=== PATIENT | female | born 1975 | race Caucasian/White ===

== ENCOUNTER 2018-07-14 13:12 | Outpatient (CLI) | payer MEDICARE ==
[2018-07-14 13:41] LABS: Actual Bicarbonate (HCO3a) 19.3 mEq/L (22-28); Analyzer IN Cardio OR; Base Excess (BEa) -3.3 mEq/L (-2.0 to +3.0); CO2 Tension 28.8 mmHg (35.0-45.0); Calcium, Ionized 1.17 mmol/L (1.12-1.30); Carboxyhemoglobin (COHb) 2.8 gm% (0.0-3.0); Hemoglobin (Hb) 14.5 g/dL (12.0-16.0); O2 Tension (PaO2) 101.7 mmHg (80.0-100.0); Potassium - ABG Lab 4.03 mmol/L (3.70-5.30); pH, Arterial 7.45 (7.35-7.45)
[2018-07-14 13:42] LABS: Puncture Site RRA
== END 2018-07-14 13:13 | disposition home or self-care (01) ==
LOC: CP 13:12
PROVIDERS: ATTEND Family Medicine
DX: R09.02 Hypoxemia (principal)
CPT/HCPCS: 82805

== ENCOUNTER 2019-10-18 10:08 | Emergency (ER) | payer MEDICARE ==
--- NOTE | 2019-10-18 11:13 | RAD ---
RADIOGRAPH LUMBAR SPINE 2 VIEWS: DATE: 10/18/2019 HISTORY: 43-year-old female with low back pain FINDINGS: There are 5 lumbar-type vertebrae. Alignment is normal. Vertebral body heights and disc spaces are ma intained. There is no evidence of fracture. Bilateral pedicle screws at L4, L5, and S1 with vertical interlocking rods. Anterior screws entering the disc spaces at L4-5 and L5-S1, with distal t ips embedded in the inferior endplate of L4 and anterior body of S1. Successful ankylosis across the L4-5 and L5-S1 disc spaces. IMPRESSION: 1. Postsurgical changes in the mid and lower lumbar spine. 2. No other significant pathology identified.
--- NOTE | 2019-10-18 11:55 | ULT ---
ULTRASOUND PELVIC ULTRASOUND TRANSVAGINAL DOPPLER DUPLEX: DATE: 10/18/2019 HISTORY: 43-year-old female with pelvic pain TECHNIQUE: Transabdominal transducer and endovaginal transducer used to visualize intrapelvic contents with abel scale, color-flow, and spectral analysis. FINDINGS: Uterus: 9 x 5 x 5.5 cm. Endometrial stripe: 0.6 cm (6 mm) At least 2 uterine fibroids, and possibly several more. Largest is 4 x 3 x 3 cm. There are at least 2 tiny calcifications in the uterus, 0.4 cm and 0.2 cm. Right ovary 2.5 x 1.2 x 2.2 cm with demonstration of blood flow by Doppler. No right ovarian cyst identified. Left ovary not visualized. Tiny amount of free fluid in the cul-de-sac. IMPRESSION: 1. Uterine leiomyomata (fibroids) 2. Left ovary not visualized.
[2019-10-18 12:53] LABS: Pregnancy Test - Urine (BHCG) Negative (Negative); Pregu Control Background? CLEAR/WHITE (CLR/WHITE); Pregu Control Bar Appear? YES (CONTROL BAR); Specific Gravity 1.017 (1.002-1.036)
[2019-10-18] MEDS ORDERED: Lidocaine 5% Patch TD SCH (13:00)
[2019-10-19] MEDS ORDERED: Lidocaine Patch Removal 1 EACH TOP SCH (01:00)
[2019-10-20 20:27] LABS: Chlamydia by PCR Not Detected (NotDetected); GC by PCR Not Detected (NotDetected)
== END 2019-10-18 12:55 | disposition home or self-care (01) ==
LOC: ERS 10:08
DX: D25.9 Leiomyoma of uterus, unspecified (principal); M54.5 Low back pain; G89.29 Other chronic pain; K58.9 Irritable bowel syndrome, unspecified; F17.210 Nicotine dependence, cigarettes, uncomplicated; Z79.899 Other long term (current) drug therapy
CPT/HCPCS: 72100; 76856; 81025; 87480; 87491; 87510; 87591; 87660; 93976

== ENCOUNTER 2020-02-18 07:51 | Outpatient (CLI) | payer MEDICARE, OTHER | END 2020-02-18 07:52 | disposition home or self-care (01) | LOC: LABBT 07:51 | PROVIDERS: ATTEND Obstetrics & Gynecology | DX: Z01.812 Encounter for preprocedural laboratory examination (principal); Z20.828 Contact with and (suspected) exposure to other viral communicable diseases | CPT/HCPCS: 84703; 85025; 86850; 86900; 86901; U0003; 87635 ==

== ENCOUNTER 2020-02-23 05:32 | Day surgery (SDC) | payer MEDICARE, OTHER ==
[2020-02-18 14:40] LABS: #Eosinphils 0.2 thou/uL (0.0-0.7); #Lymphocytes 2.1 thou/uL (1.20-3.40); #Monocytes 0.5 thou/uL (0.11-0.59); #Neutrophils 4.5 thou/uL (1.40-6.50); %Basophils 0.5 % (0.0-1.0); %Eosinophils 2.7 % (0.0-10.0); %Lymphocytes 28.5 % (21.0-51.0); %Monocytes 6.5 % (0.0-10.0); %Neutrophils 61.9 % (42.0-75.0); Hemoglobin 13.5 g/dL (12.0-16.0); Mean Corpuscular HGB CONC 34.1 g/dL (32.0-36.0); Mean Corpuscular Hemoglobin 32.1 pg (27.0-31.0); Mean Corpuscular Volume 94.1 fL (78.0-98.0); Mean Platelet Volume 9.2 fL (7.4-10.4); Platelet Count 195 thou/uL (130-400); RBC Distribution Width 11.1 % (11.5-14.5); Red Blood Cell (RBC) Count 4.19 mill/uL (4.20-5.40); White Blood Cell (WBC) Count 7.3 thou/uL (4.8-10.8)
[2020-02-18 15:04] VITALS: BMI 27.8
[2020-02-18 15:28] LABS: BHCG - Serum Negative (NEGATIVE); Pregs Control Background? CLEAR/WHITE (CLR/WHITE); Pregs Control Bar Appear? YES (CONTROL BAR)
[2020-02-19 13:51] LABS: SARS-CoV-2 MS2 Positive; SARS-CoV-2 N Gene Negative; SARS-CoV-2 S Gene Negative; SARS-CoV-2 by NAA Not Detected (NotDetected); SARS-CoV-2 orf1ab Negative
[2020-02-23] MEDS ORDERED: Gabapentin 300 MG CAP ONE (06:07)
[2020-02-23] MEDS ORDERED: CeleCOXIB 100 MG CAP ONE (06:08)
[2020-02-23] MEDS ORDERED: Famotidine/PF 20 mg/2ml Vial SLOW IVP SCH (06:15)
[2020-02-23] MEDS ORDERED: Lidocaine 4% Topical Sol 50 ML BOT ONE (06:37)
[2020-02-23] MEDS ORDERED: Fentanyl 250 MCG/5 ML VIAL ONE (06:37)
[2020-02-23] MEDS ORDERED: Albuterol Sulfate HFA (OR ONLY) ONE (06:37)
[2020-02-23] MEDS ORDERED: Bupivacaine PF 0.5% 30 ML VIAL ONE (06:42)
[2020-02-23] MEDS ORDERED: Lidocaine 1% w/Epinephrine 1:100K 20 ML VIAL ONE (06:42)
[2020-02-23] MEDS ORDERED: Famotidine/PF 20 mg/2ml Vial ONE (07:07)
[2020-02-23] MEDS ORDERED: Scopolamine 1.5 mg/72 hour Patch ONE (07:12)
[2020-02-23] MEDS ORDERED: Midazolam HCl 2 mg/2 ml Vial ONE (07:12)
[2020-02-23] MEDS ORDERED: Ketamine 50 MG/ML (10ML VIAL) ONE (07:14)
[2020-02-23] MEDS ORDERED: Propofol 1,000 MG/100 ML VIAL IV ONE (07:14)
[2020-02-23] MEDS ORDERED: HYDROmorphone 2 MG/ML VIAL ONE (07:14)
[2020-02-23] MEDS ORDERED: Ropivacaine 0.2% 550 ML 750 ML NERVE BLCK SCH (08:15)
[2020-02-23] MEDS ORDERED: Ropivacaine HCl/PF 750 ML in Premix Bag 1 BAG NERVE BLCK SCH (08:30)
[2020-02-23] MEDS ORDERED: Glycopyrrolate 0.2 MG/ML 5 ML SYRINGE ONE (09:24)
[2020-02-23] MEDS ORDERED: PROPOFOL 200 MG/20 ML VIAL ONE (09:24)
[2020-02-23] MEDS ORDERED: Ondansetron PF 4 MG/2 ML Vial ONE (09:24)
[2020-02-23] MEDS ORDERED: EPHEDRINE 25 MG/5 ML SYRINGE ONE (09:24)
[2020-02-23] MEDS ORDERED: PHENYLEPHRINE-NS 100 MCG/ML 10 ML SYRINGE ONE (09:24)
[2020-02-23] MEDS ORDERED: Dexamethasone 20 MG/5 ML VIAL ONE (09:24)
[2020-02-23] MEDS ORDERED: Ketorolac Tromethamine 30 MG/ML VIAL ONE (09:24)
[2020-02-23] MEDS ORDERED: Rocuronium Bromide 10 MG/ML (10ML VIAL) ONE (09:24)
[2020-02-23] MEDS ORDERED: Lidocaine 1% PF 5 ML VIAL ONE (09:24)
[2020-02-23] MEDS ORDERED: Fentanyl 100 MCG/2 ML VIAL ONE ×3 (09:39→10:32)
--- NOTE | 2020-02-23 10:54 | OP ---
DATE OF PROCEDURE: 02/23/2020 PREOPERATIVE DIAGNOSES: Fibroid uterus, pelvic pain, chronic pain. POSTOPERATIVE DIAGNOSES: Fibroid uterus, pelvic pain, chronic pain. PROCEDURES PERFORMED: Robotic-assisted total laparoscopic hysterectomy with bilateral salpingectomy, ON-Q pump. RACKING TECHNICIAN: Ana Farah MD. COMPLICATIONS: None. ESTIMATED BLOOD LOSS: 50 mL. ANESTHESIA: GETA per Dr. Persaud. OPERATIVE FINDINGS: 1. Enlarged fibroid uterus with fundal posterior and anterior cervical fibroids. 2. Normal-appearing fallopian tube segments. 3. Normal-appearing ovaries. 4. Surgical site hemostatic. PROCEDURE IN DETAIL: The patient was taken back to the OR with IV fluids running. Once she was in the OR, she was placed in dorsal supine position and general anesthesia was obtained. Once the patient was asleep, she was placed in low dorsal lithotomy position with her arms tucked at her side. The abdomen and vagina were prepped and draped in normal fashion for gynecologic laparoscopy. Surgeons were gowned and gloved. A Benson catheter was placed using a sterile technique and attached to a Ana syringe for bladder manipulation during the case. An operative speculum was placed into the vagina and the cervix was grasped at the anterior lip with a tenaculum. A [employer] manipulator was assembled with a 3 cm cup and an 8 cm tip and placed into the uterus and vagina in normal fashion for uterine manipulation. The uterine and vaginal occluder balloons were inflated. The speculum and tenaculum were removed. The surgeon's gloves were changed. Attention was turned to the laparoscopic portion of the case. Beginning above the umbilicus, local anesthesia was placed underneath the skin. A 2 cm skin incision was made with a scalpel. A Veress needle was placed through this incision and the abdomen was insufflated without difficulty. The Veress needle was then removed and a 12 mm optical trocar was placed through this port. The large uterus was noted and concerned for removal from the vagina prompted extension of the supraumbilical port site to the full 2 cm length at the fascia layer and insertion of a GelPOINT retractor and an EndoCatch bag was placed into the abdomen if needed for removal of the uterus later during the case. At the end of the case, the bag was retrieved through the vagina as it was not needed for specimen retrieval. With the bag in place and the abdomen insufflated, the 3 additional ports were placed, one right and left lower quadrant 8 mm port and one right upper quadrant 11 mm port all under direct visualization without difficulty. With all ports placed, the robot was docked to the patient's bedside and the instruments were entered through the right and left lower quadrant ports under direct visualization. Beginning on the patient's left side, the left fallopian tube segment was grasped, transected and removed from the operative field. The utero-ovarian ligament on the patient's left side was cauterized and transected allowing the left artery to fall away to the pelvic sidewall. The left round ligament was cauterized, transected, and divided into anterior and posterior leaves down towards the level of the uterine artery. The bladder flap was created by dissecting the vesicouterine fascia just below the cervical fibroid. The uterine artery on the patient's left side was cauterized and transected with hemostasis noted. Attention was then turned to the contralateral side, where the right fallopian tube segment was cauterized and transected. It was removed from the operative field and sent for pathologic review. The utero- ovarian ligament on the patient's right side was cauterized and transected allowing the ovary to fall away to the pelvic sidewall. The round ligament on the patient's right side was cauterized, transected, and divided into anterior and posterior leaves down to the level of the uterine artery. After the uterine artery was skeletonized, the bladder flap was completed on the patient's right side and the bladder was dissected away from the planned colpotomy site. The bladder was backfilled and noted to be well away from the planned colpotomy site. After the uterine artery was cauterized and transected, the colpotomy began anteriorly and was completed circumferentially using monopolar scissors. The uterine specimen was then retracted through the colpotomy into the vagina. The specimen bag followed as it was not needed for specimen retrieval. With pneumoperitoneum restored, the vaginal cuff was copiously irrigated and dried as well as the surgical pedicles. Only small areas of bleeding were noted at the vaginal cuff which was controlled with Bovie cauterization. The vaginal cuff was reapproximated in a running fashion with Stratafix suture and closed in 2 layers. After the vaginal cuff was closed, it was copiously irrigated and dry. No areas of bleeding were noted. The intraabdominal pressure was dropped to 4 mmHg and no areas of bleeding were noted. An ON-Q catheter tip was placed through the anterior abdominal wall under direct visualization and the catheter was pulled down into the pelvis and primed. The catheter was fixed to the abdominal skin with a sterile dressing. The gas was released from the abdomen. All the instruments were removed and the counts were correct. The supraumbilical fascia was closed with Vicryl suture in a running fashion. All 4 skin incisions were closed with Monocryl suture and dressed with Dermabond dressing. The vagina was inspected at the end of the case with a dry sponge and no bleeding was noted. The patient tolerated the procedure well. Job ID: [id number] [facility]
[2020-02-23] MEDS ORDERED: Morphine 4 MG/ML VIAL SLOW IVP PRN (11:26)
[2020-02-23] MEDS ORDERED: Ondansetron PF 4 MG/2 ML Vial IVP PRN (11:26)
[2020-02-23] MEDS ORDERED: Simethicone Chewable 80 MG TAB PO PRN (11:26)
[2020-02-23] MEDS ORDERED: Sodium Chloride 0.9% 1,000 ML IV SCH (11:26)
[2020-02-23] MEDS ORDERED: diphenhydrAMINE 25 MG CAP PO PRN (11:26)
[2020-02-23] MEDS ORDERED: HYDROcodone/Acetaminophen 5/325 mg Tablet PO PRN ×2 (11:26)
[2020-02-23] MEDS ORDERED: Zolpidem Tartrate 5 MG TAB PO PRN (11:26)
[2020-02-23] MEDS ORDERED: Bisacodyl 10 MG SUPP PR PRN (11:26)
[2020-02-23] MEDS ORDERED: Promethazine HCl 25 MG/ML VIAL IM PRN (11:26)
[2020-02-23] MEDS ORDERED: Ketorolac Tromethamine 30 MG/ML VIAL IVP SCH (12:00)
[2020-02-23 20:13] VITALS: BP 108/59; TEMP 98
[2020-02-28] MEDS ORDERED: Ibuprofen 800 MG TAB PO SCH (14:00)
== END 2020-02-23 15:10 | disposition home or self-care (01) ==
LOC: SDC 05:32 → 3SW 11:11 → SDC 15:10
PROVIDERS: ATTEND Obstetrics & Gynecology
PROC: 0UT94ZZ Resection of Uterus, Percutaneous Endoscopic Approach (ICD-10-PCS; principal; 2020-02-23)
DX: D25.2 Subserosal leiomyoma of uterus (principal); N72 Inflammatory disease of cervix uteri; F32.9 Major depressive disorder, single episode, unspecified; F90.0 Attention-deficit hyperactivity disorder, predominantly inattentive type; F17.210 Nicotine dependence, cigarettes, uncomplicated; K58.9 Irritable bowel syndrome, unspecified; G89.29 Other chronic pain; M54.2 Cervicalgia; M54.5 Low back pain; Z79.899 Other long term (current) drug therapy
CPT/HCPCS: 58571; 84703; 85025; 86850; 86900; 86901; 88307; U0003; 36415; 87635; J0690; J1100; J1170; J1885; J2250; J2405; J2704; J2795; J3010; S0020; S0028

== ENCOUNTER 2020-12-08 14:49 | Emergency (ER) | payer MEDICARE ==
[2020-12-08 15:40] LABS: #Eosinphils 0.2 thou/uL (0.0-0.7); #Lymphocytes 2.3 thou/uL (1.20-3.40); #Monocytes 0.9 thou/uL (0.11-0.59); #Neutrophils 9.4 thou/uL (1.40-6.50); %Basophils 0.3 % (0.0-1.0); %Eosinophils 1.3 % (0.0-10.0); %Monocytes 7.1 % (0.0-10.0); %Neutrophils 73.3 % (42.0-75.0); Hemoglobin 14.4 g/dL (12.0-16.0); Mean Corpuscular HGB CONC 35.4 g/dL (32.0-36.0); Mean Corpuscular Hemoglobin 33.9 pg (27.0-31.0); Mean Corpuscular Volume 95.8 fL (78.0-98.0); Mean Platelet Volume 8.4 fL (7.4-10.4); Platelet Count 202 thou/uL (130-400); RBC Distribution Width 11.3 % (11.5-14.5); Red Blood Cell (RBC) Count 4.25 mill/uL (4.20-5.40); White Blood Cell (WBC) Count 12.8 thou/uL (4.8-10.8)
[2020-12-08 15:45] LABS: Bilirubin Negative (Negative); Blood, Urine 2+ (Negative); Clarity Turbid (Clear); Glucose, Urine (Dipstick) Normal (Negative); Ketone, Urine Negative (Negative); Leukocyte 500 Leu/uL (Negative); Nitrite 1+ (Negative); Protein, Urine (Dipstick) 30 mg/dL (Neg-Trace); Specific Gravity, Urine 1.028 (1.002-1.036); Squamous Epithelial 0-3 HPF (0-3); Urobilinogen Normal mg/dL (Less than 2); WBC/HPF Greater than 50 HPF (0-3)
[2020-12-08 15:47] LABS: Bacteria/HPF 3+ HPF (None Seen)
[2020-12-08 16:03] LABS: ALT (SGPT) 10 U/L (8-55); AST (SGOT) 17 U/L (5-34); Albumin 4.1 g/dL (3.5-5.0); Alkaline Phosphatase 64 U/L (40-110); Anion Gap 15 mmol/L (10-20); BUN (Urea Nitrogen) 11 mg/dL (7.0-18.7); Bilirubin, Total 0.2 mg/dL (0.2-1.2); Calc. Creatinine Clearance 0 mL/min (70-130); Calcium 8.9 mg/dL (7.8-10.44); Carbon Dioxide 23 mmol/L (22-29); Chloride 104 mmol/L (98-107); Globulin 2.9 g/dL (2.4-3.5); Glucose 106 mg/dL (70-105); Potassium 3.8 mmol/L (3.5-5.1); Sodium 138 mmol/L (136-145)
[2020-12-08] MEDS ORDERED: Morphine 4 MG/ML VIAL ONE (16:20)
[2020-12-08] MEDS ORDERED: Ondansetron PF 4 MG/2 ML Vial ONE (16:20)
[2020-12-08] MEDS ORDERED: Ketorolac Tromethamine 30 MG/ML VIAL ONE (17:02)
[2020-12-08] MEDS ORDERED: cefTRIAXone\\ROCEPHIN 2 GM VIAL ONE (17:15)
[2020-12-08] MEDS ORDERED: Fentanyl 100 MCG/2 ML VIAL ONE (17:22)
== END 2020-12-08 17:48 | disposition home or self-care (01) ==
LOC: ERS 14:49
DX: N30.01 Acute cystitis with hematuria (principal); F17.210 Nicotine dependence, cigarettes, uncomplicated
CPT/HCPCS: 36415; 74177; 80053; 81003; 81015; 85025; 87040; 94760; 96374; 96375; J0696; J1885; J2270; J2405; J3010

== ENCOUNTER 2021-11-20 13:42 | Emergency (ER) | payer MEDICARE ==
[2021-11-20 14:21] LABS: Bilirubin Negative (Negative); Blood, Urine Trace (Negative); Clarity Clear (Clear); Glucose, Urine (Dipstick) Normal (Negative); Ketone, Urine Negative (Negative); Leukocyte 500 Leu/uL (Negative); Nitrite Negative (Negative); Protein, Urine (Dipstick) Negative (Neg-Trace); Specific Gravity, Urine 1.026 (1.002-1.036); Urobilinogen Normal mg/dL (Less than 2); WBC/HPF Greater than 50 HPF (0-3)
[2021-11-20 14:22] LABS: Bacteria/HPF 1+ HPF (None Seen)
[2021-11-20 14:28] LABS: #Eosinphils 0.1 thou/uL (0.0-0.7); #Lymphocytes 2.2 thou/uL (1.20-3.40); #Monocytes 0.8 thou/uL (0.11-0.59); #Neutrophils 6.1 thou/uL (1.40-6.50); %Basophils 0.3 % (0.0-1.0); %Lymphocytes 23.9 % (21.0-51.0); %Monocytes 8.2 % (0.0-10.0); %Neutrophils 66.5 % (42.0-75.0); Mean Corpuscular Hemoglobin 32.4 pg (27.0-31.0); Mean Corpuscular Volume 95.4 fL (78.0-98.0); Mean Platelet Volume 7.6 fL (7.4-10.4); Platelet Count 265 thou/uL (130-400); RBC Distribution Width 10.7 % (11.5-14.5); Red Blood Cell (RBC) Count 4.64 mill/uL (4.20-5.40); White Blood Cell (WBC) Count 9.2 thou/uL (4.8-10.8)
[2021-11-20 14:48] LABS: ALT (SGPT) 13 U/L (8-55); AST (SGOT) 10 U/L (5-34); Albumin 4.2 g/dL (3.5-5.0); Alkaline Phosphatase 58 U/L (40-110); Anion Gap 13 mmol/L (10-20); BUN (Urea Nitrogen) 11 mg/dL (7.0-18.7); Bilirubin, Total 0.4 mg/dL (0.2-1.2); Calc. Creatinine Clearance 0 mL/min (70-130); Calcium 9.1 mg/dL (7.8-10.44); Carbon Dioxide 23 mmol/L (22-29); Chloride 105 mmol/L (98-107); Globulin 3.2 g/dL (2.4-3.5); Glucose 96 mg/dL (70-105); Potassium 4.1 mmol/L (3.5-5.1); Protein, Total 7.4 g/dL (6.0-8.3); Sodium 137 mmol/L (136-145)
[2021-11-20] MEDS ORDERED: Ondansetron PF 4 MG/2 ML Vial ONE (14:49)
[2021-11-20] MEDS ORDERED: cefTRIAXone\\ROCEPHIN 2 GM VIAL ONE (14:49)
[2021-11-20] MEDS ORDERED: Morphine 4 MG/ML VIAL ONE (14:49)
== END 2021-11-20 16:30 | disposition home or self-care (01) ==
LOC: ERS 13:42
DX: N30.01 Acute cystitis with hematuria (principal); Z87.891 Personal history of nicotine dependence; Z79.899 Other long term (current) drug therapy
CPT/HCPCS: 74177; 80053; 81003; 81015; 85025; 86850; 86900; 86901; 94760; 96365; 96375; J0696; J2270; J2405

== ENCOUNTER 2022-09-29 08:32 | Emergency (ER) | payer MEDICARE ==
[2022-09-29] MEDS ORDERED: Morphine 4 MG/ML VIAL ONE ×2 (09:10→11:01)
[2022-09-29] MEDS ORDERED: Ondansetron PF 4 MG/2 ML Vial ONE (09:10)
[2022-09-29 09:36] LABS: #Lymphocytes 1.2 thou/uL (1.20-3.40); #Monocytes 1.1 thou/uL (0.11-0.59); #Neutrophils 17.4 thou/uL (1.40-6.50); %Eosinophils 0.2 % (0.0-10.0); %Monocytes 5.7 % (0.0-10.0); %Neutrophils 88.1 % (42.0-75.0); Hemoglobin 14.4 g/dL (12.0-16.0); Mean Corpuscular Hemoglobin 32.3 pg (27.0-31.0); Mean Corpuscular Volume 94.8 fl (78.0-98.0); Mean Platelet Volume 7.8 fL (7.4-10.4); Platelet Count 235 10x3/uL (130-400); Red Blood Cell (RBC) Count 4.45 mill/uL (4.20-5.40); White Blood Cell (WBC) Count 19.8 10x3/uL (4.8-10.8)
[2022-09-29 09:51] LABS: Prothrombin Time 105.1 sec (12.0-14.7)
[2022-09-29 09:57] LABS: ALT (SGPT) 33 U/L (8-55); AST (SGOT) 22 U/L (5-34); Albumin 4.5 g/dL (3.5-5.0); Alkaline Phosphatase 64 U/L (40-110); Anion Gap 15 mmol/L (10-20); BUN (Urea Nitrogen) 11 mg/dL (7.0-18.7); Bilirubin, Total 0.7 mg/dL (0.2-1.2); Calc. Creatinine Clearance 0 mL/min (70-130); Calcium 9.3 mg/dL (7.8-10.44); Carbon Dioxide 21 mmol/L (22-29); Chloride 105 mmol/L (98-107); Estimated GFR 90; Globulin 2.8 g/dL (2.4-3.5); Glucose 110 mg/dL (70-105); Lipase 7 U/L (8-78); Protein, Total 7.3 g/dL (6.0-8.3); Sodium 137 mmol/L (136-145)
[2022-09-29 10:08] LABS: INR-International Normal Ratio 13.2
[2022-09-29 10:09] LABS: PTT Greater than 250.0 sec (22.9-36.1)
[2022-09-29] MEDS ORDERED: cefTRIAXone (ROCEPHIN) 2 GM VIAL ONE (11:01)
[2022-09-29 11:14] LABS: Bacteria/HPF 2+ HPF (None Seen); Bilirubin Negative (Negative); Blood, Urine Negative (Negative); Clarity Turbid (Clear); Glucose, Urine (Dipstick) Normal (Negative); Ketone, Urine Negative (Negative); Leukocyte 500 Leu/uL (Negative); Nitrite 2+ (Negative); Protein, Urine (Dipstick) Negative (Neg-Trace); RBC/HPF 0-3 HPF (0-3); Specific Gravity, Urine 1.014 (1.002-1.036); Squamous Epithelial 0-3 HPF (0-3); Urobilinogen Normal mg/dL (Less than 2); WBC/HPF Greater than 50 HPF (0-3); pH, Urine 5.5 (5.0-9.0)
[2022-09-29 12:13] LABS: PTT 25.3 sec (22.9-36.1); Prothrombin Time 13.8 sec (12.0-14.7)
[2022-09-29] MEDS ORDERED: Iopamidol-370 76% 500 ML MDV (1 ML CHARGE) ONE (12:30)
== END 2022-09-29 12:46 | disposition home or self-care (01) ==
LOC: ERS 08:32
DX: N39.0 Urinary tract infection, site not specified (principal); D72.829 Elevated white blood cell count, unspecified; I10 Essential (primary) hypertension
CPT/HCPCS: 74177; 80053; 81003; 81015; 83690; 85025; 85610; 85730; 94760; 96374; 96375; 96376; J0696; J2270; J2405; Q9967

== ENCOUNTER 2023-07-21 10:35 | Inpatient (IN) | payer MEDICARE ==
[2023-07-21] MEDS ORDERED: Ondansetron ODT 4 MG TAB ONE (11:37)
[2023-07-21] MEDS ORDERED: Acetaminophen 500 MG TAB ONE (11:37)
[2023-07-21 11:52] LABS: Hematocrit 36.3 % (36.0-47.0); Hemoglobin 12.4 g/dL (12.0-16.0); Manual Diff?? YES; Mean Corpuscular HGB CONC 34.2 g/dL (32.0-36.0); Mean Corpuscular Hemoglobin 31.7 pg (27.0-31.0); Mean Corpuscular Volume 92.8 fl (78.0-98.0); Mean Platelet Volume 9.9 fL (7.4-10.4); Platelet Count 179 10x3/uL (130-400); RBC Distribution Width 12.5 % (11.5-14.5); Red Blood Cell (RBC) Count 3.91 mill/uL (4.20-5.40); White Blood Cell (WBC) Count 26.2 10x3/uL (4.8-10.8)
[2023-07-21 12:02] LABS: Delete Auto Diff?? YES
[2023-07-21 12:10] LABS: ALT (SGPT) 61 U/L (8-55); AST (SGOT) 46 U/L (5-34); Albumin 3.7 g/dL (3.5-5.0); Alkaline Phosphatase 86 U/L (40-110); Anion Gap 14 mmol/L (10-20); BUN (Urea Nitrogen) 12 mg/dL (7.0-18.7); Bilirubin, Total 1.3 mg/dL (0.2-1.2); Calc. Creatinine Clearance 0 mL/min (70-130); Calcium 9.3 mg/dL (7.8-10.44); Carbon Dioxide 19 mmol/L (22-29); Chloride 105 mmol/L (98-107); Estimated GFR 60; Glucose 129 mg/dL (70-105); Lipase 4 U/L (8-78); Potassium 3.5 mmol/L (3.5-5.1); Protein, Total 6.7 g/dL (6.0-8.3); Sodium 134 mmol/L (136-145)
[2023-07-21 12:28] LABS: Band 7 % (5-11); Burr Cells SLIGHT = 2-5 cells HPF (0-1); CellaVision Operator ID LAB.NR; Lymphocytes 1 % (21-51); Monocytes 8 % (0-10); Neutrophil 84 % (42-75); Platelet Adequacy Comment Platelets Normal; Polychromasia SLIGHT = 2-3 cells HPF (0-2); Smudge Cells 6.1 %; Total Cell Count 99; Vacuoles SLIGHT
[2023-07-21] MEDS ORDERED: Morphine 4 MG/ML VIAL ONE ×2 (12:32→14:27)
[2023-07-21 12:59] LABS: Bacteria/HPF 4+ HPF (None Seen); Bilirubin Negative (Negative); Blood, Urine Trace (Negative); CAUTI Indications for Culture Alt mental st,lethar; Clarity Turbid (Clear); Glucose, Urine (Dipstick) Normal (Negative); Ketone, Urine Negative (Negative); Leukocyte 500 Leu/uL (Negative); Nitrite 2+ (Negative); Protein, Urine (Dipstick) 50 mg/dL (Neg-Trace); Specific Gravity, Urine 1.012 (1.002-1.036); WBC/HPF Greater than 50 HPF (0-3); pH, Urine 5.5 (5.0-9.0)
[2023-07-21 13:00] LABS: Urine Culture Reflex Yes Yes
[2023-07-21] MEDS ORDERED: Cefepime 2 GM VIAL ONE (13:20)
[2023-07-21] MEDS ORDERED: Sodium Chloride 0.9% 100 ML ONE (13:20)
[2023-07-21 13:27] LABS: SARS-CoV-2 NAA Rapid Test Not Detected (NotDetected)
[2023-07-21] MEDS ORDERED: Non-Formulary Item 1 EACH (Albuterol Sulfate [Proair Digihaler] 90 MCG Aer.Pw.Bas) IH PRN (15:47)
[2023-07-21] MEDS ORDERED: Iopamidol-370 76% 500 ML MDV (1 ML CHARGE) ONE (15:59)
[2023-07-21] MEDS: oxyCODONE 5 MG TAB PO PRN (16:44)
[2023-07-21] MEDS: Enoxaparin 40 MG (0.4 mL) SYRINGE SC SCH (16:48)
[2023-07-21] MEDS: Sodium Chloride 0.9% 1,000 ML IV SCH ×2 (16:52→23:35)
[2023-07-21 17:00] VITALS: BMI 27.9
[2023-07-21] MEDS ORDERED: Ketorolac Tromethamine 30 MG (1 mL) VIAL IVP PRN (19:48)
[2023-07-21] MEDS: Ketorolac Tromethamine 30 MG (1 mL) VIAL IVP SCH (20:02)
[2023-07-21] MEDS: HYDROcodone/Acetaminophen 10/325 mg Tablet PO PRN (20:03)
[2023-07-21] MEDS: Zolpidem Tartrate 5 MG TAB PO SCH (21:17)
[2023-07-21] MEDS: Sodium Chloride 0.9% 500 ML IV SCH (21:28)
[2023-07-21] MEDS: Naloxone HCl 0.4 mg/ml Vial IV PRN (22:23)
[2023-07-21] MEDS ORDERED: HYDROcodone/Acetaminophen 5/325 mg Tablet PO PRN (22:38)
[2023-07-21] MEDS: Acetaminophen 500 MG TAB PO SCH (22:48)
[2023-07-21] MEDS: Lidocaine 4% Patch TD SCH (22:49)
[2023-07-22] MEDS: Naloxone HCl 0.4 mg/ml Vial IV SCH (00:10)
[2023-07-22] MEDS: Sodium Chloride 0.9% 1,000 ML IV SCH (00:10)
[2023-07-22 00:42] LABS: Amphetamine Detected (NotDetected); Barbiturates Screen Not Detected (NotDetected); Benzodiazepine Screen Not Detected (NotDetected); Cocaine Metabolite Screen Not Detected (NotDetected); Methadone Not Detected (NotDetected); Methamphetamine Not Detected (NotDetected); Opiate Screen Detected (NotDetected); Oxycodone Screen Detected (NotDetected); Phencyclidine (PCP) Not Detected (NotDetected); THC/Cannabinoid Screen Detected (NotDetected); Tricyclic Screen Not Detected (NotDetected)
[2023-07-22 00:52] LABS: Actual Bicarbonate (HCO3v) 18.3 mEq/L (22-28); Base Excess -6.9 mEq/L (-2.0 to +3.0); Calcium, Ionized (venous) 1.09 mmol/L (1.16-1.32); Chloride (VBG) 107 mmol/L (98-106); Hematocrit-VBG 31 % (36.0-47.0); Hemoglobin (Hb) 10.6 g/dL (11.7-16.0); Potassium (VBG) 3.66 mmol/L (3.70-5.30); Sodium 133 mmol/L (133-146); pH (venous) 7.331 (7.32-7.43)
[2023-07-22 00:55] LABS: #Monocytes 1.8 thou/uL (0.11-0.59); #Neutrophils 15.6 thou/uL (1.40-6.50); %Basophils 0.1 % (0.0-1.0); %Eosinophils 0.1 % (0.0-10.0); %Lymphocytes 2.2 % (21.0-51.0); %Monocytes 9.8 % (0.0-10.0); %Neutrophils 86.4 % (42.0-75.0); Hematocrit 29.1 % (36.0-47.0); Mean Corpuscular HGB CONC 34.4 g/dL (32.0-36.0); Mean Corpuscular Hemoglobin 31.4 pg (27.0-31.0); Mean Corpuscular Volume 91.5 fl (78.0-98.0); Mean Platelet Volume 10.4 fL (7.4-10.4); Platelet Count 132 10x3/uL (130-400); RBC Distribution Width 12.7 % (11.5-14.5); Red Blood Cell (RBC) Count 3.18 mill/uL (4.20-5.40); White Blood Cell (WBC) Count 18.1 10x3/uL (4.8-10.8)
[2023-07-22 01:18] LABS: ALT (SGPT) 114 U/L (8-55); AST (SGOT) 108 U/L (5-34); Albumin 2.9 g/dL (3.5-5.0); Alkaline Phosphatase 101 U/L (40-110); Anion Gap 10 mmol/L (10-20); BUN (Urea Nitrogen) 13 mg/dL (7.0-18.7); Bilirubin, Total 1.7 mg/dL (0.2-1.2); Calc. Creatinine Clearance 75 mL/min (70-130); Calcium 7.8 mg/dL (7.8-10.44); Carbon Dioxide 20 mmol/L (22-29); Chloride 109 mmol/L (98-107); Estimated GFR 63; Globulin 2.4 g/dL (2.4-3.5); Glucose 140 mg/dL (70-105); Magnesium 1.5 mg/dL (1.6-2.6); Potassium 3.8 mmol/L (3.5-5.1); Protein, Total 5.3 g/dL (6.0-8.3); Sodium 135 mmol/L (136-145)
[2023-07-22] MEDS ORDERED: NOREPINEPHRINE 8 MG/250 ML-D5W 250 ML IVPB SCH (01:45)
[2023-07-22] MEDS: Ketorolac Tromethamine 30 MG (1 mL) VIAL IVP PRN (02:00)
[2023-07-22] MEDS: Albumin 25% 25 GM (100 mL) BOT IVPB SCH (02:05)
[2023-07-22] MEDS: Cefepime 2 GM in Sodium Chloride 0.9% 100 ML IVPB SCH (03:01)
[2023-07-22] MEDS: Magnesium Sulfate In Water 4 GM in Premix 1 BAG IVPB SCH (03:01)
[2023-07-22] MEDS: NOREPINEPHRINE 8 MG/250 ML-D5W 0 ML ONE (04:19)
[2023-07-22] MEDS ORDERED: fentaNYL 50 mcg/mL 1 mL Vial SLOW IVP SCH (05:30)
[2023-07-22] MEDS: Morphine 2 MG/ML VIAL SLOW IVP SCH (06:15)
[2023-07-22 06:21] LABS: Hematocrit 35.4 % (36.0-47.0); Hemoglobin 11.4 g/dL (12.0-16.0); Mean Corpuscular HGB CONC 32.2 g/dL (32.0-36.0); Mean Corpuscular Hemoglobin 31.2 pg (27.0-31.0); Mean Platelet Volume 10.9 fL (7.4-10.4); Platelet Count 142 10x3/uL (130-400); RBC Distribution Width 12.9 % (11.5-14.5); Red Blood Cell (RBC) Count 3.65 mill/uL (4.20-5.40); White Blood Cell (WBC) Count 12.7 10x3/uL (4.8-10.8)
[2023-07-22 06:22] LABS: Delete Auto Diff?? YES
[2023-07-22 06:23] LABS: Manual Diff?? YES
[2023-07-22 06:41] LABS: Anion Gap 14 mmol/L (10-20); BUN (Urea Nitrogen) 12 mg/dL (7.0-18.7); Calc. Creatinine Clearance 77 mL/min (70-130); Calcium 8.2 mg/dL (7.8-10.44); Carbon Dioxide 15 mmol/L (22-29); Chloride 109 mmol/L (98-107); Estimated GFR 65; Glucose 99 mg/dL (70-105); Potassium 3.8 mmol/L (3.5-5.1); Sodium 134 mmol/L (136-145)
[2023-07-22 06:47] LABS: Band 15 % (5-11); CellaVision Operator ID LAB.CLH1; Hypochromia SLIGHT = 6-15 cells HPF (0-5); Lymphocytes 3 % (21-51); Monocytes 3 % (0-10); Neutrophil 79 % (42-75); Platelet Adequacy Comment Platelets Normal; Polychromasia SLIGHT = 2-3 cells HPF (0-2); Total Cell Count 100
[2023-07-22] MEDS: Acetaminophen 325 MG TAB PO PRN (08:16)
[2023-07-22] MEDS: Transdermal Patch Removal TOP SCH (08:24)
[2023-07-22] MEDS ORDERED: Acetaminophen 500 MG TAB PO PRN (08:39)
[2023-07-22] MEDS ORDERED: Transdermal Patch Removal TOP SCH (10:45)
[2023-07-22] MEDS: Meropenem 1 GM in Sodium Chloride 0.9% 100 ML IVPB SCH ×2 (12:45→18:04)
[2023-07-22] MEDS: oxyCODONE 5 MG TAB PO PRN (12:56)
[2023-07-22] MEDS: Acetaminophen 500 MG TAB PO SCH (14:43)
[2023-07-22] MEDS ORDERED: Ondansetron ODT 4 MG TAB PO PRN (19:20)
[2023-07-22 19:50] LABS: HBCM Index 0.06 S/CO (0-0.79); HBSAg Index 0.23 S/CO (0-0.99); Hep A IgM AB Non-Reactive S/CO (NonReactive); Hep A IgM S/CO 0.09 S/CO (0-0.79); Hep B Surf Ag Non-Reactive S/CO (NonReactive); Hep C IgG Ab Non-Reactive S/CO (NonReactive); Hep C Index 0.06 S/CO (0-0.79); Hepatitis B Core IgM Abs Non-Reactive S/CO (NonReactive)
[2023-07-22] MEDS: Lidocaine 4% Patch TD SCH (20:23)
[2023-07-22] MEDS: Enoxaparin 40 MG (0.4 mL) SYRINGE SC SCH (20:23)
[2023-07-22] MEDS: hydrALAZINE 25 MG TAB PO SCH (21:29)
[2023-07-22] MEDS: Ipratropium/Albuterol 3 ML NEB NEB PRN (21:50)
[2023-07-22] MEDS: hydrALAZINE 20 MG/ML VIAL SLOW IVP SCH ×2 (21:54→23:08)
[2023-07-22] MEDS: Furosemide 40 MG (4 mL) VIAL SLOW IVP SCH (21:55)
[2023-07-22 22:03] LABS: Actual Bicarbonate (HCO3v) 16.6 mEq/L (22-28); Calcium, Ionized (venous) 1.12 mmol/L (1.16-1.32); Chloride (VBG) 106 mmol/L (98-106); Hematocrit 34.7 % (36.0-47.0); Hematocrit-VBG 38 % (36.0-47.0); Hemoglobin 11.8 g/dL (12.0-16.0); Hemoglobin (Hb) 12.9 g/dL (11.7-16.0); Manual Diff?? YES; Mean Corpuscular Hemoglobin 31.8 pg (27.0-31.0); Mean Platelet Volume 11.1 fL (7.4-10.4); Platelet Count 148 10x3/uL (130-400); Potassium (VBG) 3.69 mmol/L (3.70-5.30); RBC Distribution Width 12.9 % (11.5-14.5); Red Blood Cell (RBC) Count 3.71 mill/uL (4.20-5.40); Sodium 135 mmol/L (133-146); White Blood Cell (WBC) Count 30.1 10x3/uL (4.8-10.8)
[2023-07-22 22:05] LABS: Delete Auto Diff?? YES; Mean Corpuscular Volume 93.5 fl (78.0-98.0)
[2023-07-22 22:23] LABS: Anion Gap 15 mmol/L (10-20); BUN (Urea Nitrogen) 11 mg/dL (7.0-18.7); Calc. Creatinine Clearance 96 mL/min (70-130); Calcium 8.5 mg/dL (7.8-10.44); Carbon Dioxide 13 mmol/L (22-29); Chloride 109 mmol/L (98-107); Estimated GFR 85; Glucose 126 mg/dL (70-105); Magnesium 2.4 mg/dL (1.6-2.6); Potassium 3.8 mmol/L (3.5-5.1); Sodium 133 mmol/L (136-145)
[2023-07-22 22:26] LABS: Band 5 % (5-11); CellaVision Operator ID lab.sh2; Lymphocytes 1 % (21-51); Macrocytosis SLIGHT = 6-15 cells HPF (0-5); Monocytes 1 % (0-10); Neutrophil 93 % (42-75); Ovalocytes SLIGHT = 2-5 cells HPF (0-1); Platelet Adequacy Comment Platelets Normal; Polychromasia SLIGHT = 2-3 cells HPF (0-2); Smudge Cells 18.2 %; Total Cell Count 99
[2023-07-22] MEDS ORDERED: hydrALAZINE 20 MG/ML VIAL SLOW IVP SCH (23:00)
[2023-07-22] MEDS: Sodium Bicarb 50 mEq/50 ML VIAL IVP SCH (23:11)
[2023-07-22] MEDS: Labetalol HCl 100 MG/20 ML VIAL SLOW IVP SCH (23:53)
[2023-07-23] MEDS: cloNIDine 0.1 MG TAB PO SCH (01:37)
[2023-07-23] MEDS: hydrALAZINE 20 MG/ML VIAL SLOW IVP PRN (03:12)
[2023-07-23 04:22] LABS: Hematocrit 35.3 % (36.0-47.0); Hemoglobin 12.3 g/dL (12.0-16.0); Manual Diff?? YES; Mean Corpuscular HGB CONC 34.8 g/dL (32.0-36.0); Mean Corpuscular Hemoglobin 31.5 pg (27.0-31.0); Mean Platelet Volume 10.9 fL (7.4-10.4); Platelet Count 198 10x3/uL (130-400); RBC Distribution Width 12.9 % (11.5-14.5); Red Blood Cell (RBC) Count 3.91 mill/uL (4.20-5.40); White Blood Cell (WBC) Count 31.8 10x3/uL (4.8-10.8)
[2023-07-23 04:25] LABS: Delete Auto Diff?? YES; Mean Corpuscular Volume 90.3 fl (78.0-98.0)
[2023-07-23 04:54] LABS: ALT (SGPT) 78 U/L (8-55); AST (SGOT) 37 U/L (5-34); Albumin 3.8 g/dL (3.5-5.0); Alkaline Phosphatase 164 U/L (40-110); Anion Gap 16 mmol/L (10-20); BUN (Urea Nitrogen) 11 mg/dL (7.0-18.7); Bilirubin, Total 3.3 mg/dL (0.2-1.2); Calc. Creatinine Clearance 85 mL/min (70-130); Calcium 8.9 mg/dL (7.8-10.44); Carbon Dioxide 18 mmol/L (22-29); Chloride 104 mmol/L (98-107); Estimated GFR 73; Glucose 122 mg/dL (70-105); Potassium 2.9 mmol/L (3.5-5.1); Sodium 135 mmol/L (136-145)
[2023-07-23 05:33] LABS: Band 8 % (5-11); CellaVision Operator ID lab.sh2; Monocytes 5 % (0-10); Neutrophil 87 % (42-75); Platelet Adequacy Comment Platelets Normal; RBC Morphology Within Normal Limits; Total Cell Count 101
[2023-07-23 05:53] LABS: Globulin 3.4 g/dL (2.4-3.5)
[2023-07-23 05:56] LABS: Protein, Total 7.2 g/dL (6.0-8.3)
[2023-07-23] MEDS: Furosemide 40 MG (4 mL) VIAL SLOW IVP SCH (06:01)
[2023-07-23] MEDS ORDERED: oxyCODONE 5 MG TAB PO PRN ×2 (09:04→16:08)
[2023-07-23] MEDS: Potassium Chloride 20 MEQ in Premix 1 BAG IVPB SCH (17:02)
[2023-07-24] MEDS ORDERED: Electrolyte Replacement Protocol 1 EACH FS SCH (04:30)
[2023-07-24 06:22] LABS: #Monocytes 1.8 thou/uL (0.11-0.59); #Neutrophils 19.6 thou/uL (1.40-6.50); %Basophils 0.1 % (0.0-1.0); %Lymphocytes 5.1 % (21.0-51.0); %Neutrophils 85.8 % (42.0-75.0); Hemoglobin 12.7 g/dL (12.0-16.0); Mean Corpuscular HGB CONC 35.3 g/dL (32.0-36.0); Mean Corpuscular Hemoglobin 31.4 pg (27.0-31.0); Mean Corpuscular Volume 89.1 fl (78.0-98.0); Mean Platelet Volume 9.7 fL (7.4-10.4); Platelet Count 260 10x3/uL (130-400); RBC Distribution Width 12.8 % (11.5-14.5); Red Blood Cell (RBC) Count 4.04 mill/uL (4.20-5.40); White Blood Cell (WBC) Count 22.9 10x3/uL (4.8-10.8)
[2023-07-24 06:48] LABS: ALT (SGPT) 55 U/L (8-55); AST (SGOT) 22 U/L (5-34); Albumin 3.5 g/dL (3.5-5.0); Alkaline Phosphatase 135 U/L (40-110); Anion Gap 13 mmol/L (10-20); BUN (Urea Nitrogen) 11 mg/dL (7.0-18.7); Bilirubin, Direct 0.8 mg/dL (0.1-0.3); Bilirubin, Total 1.3 mg/dL (0.2-1.2); Calc. Creatinine Clearance 101 mL/min (70-130); Carbon Dioxide 26 mmol/L (22-29); Chloride 101 mmol/L (98-107); Estimated GFR 90; Glucose 150 mg/dL (70-105); Magnesium 1.8 mg/dL (1.6-2.6); Potassium 3.1 mmol/L (3.5-5.1); Protein, Total 6.7 g/dL (6.0-8.3); Sodium 137 mmol/L (136-145)
[2023-07-24] MEDS ORDERED: Electrolyte Replacement Protocol FS PRN (07:00)
[2023-07-24] MEDS: Magnesium 2 GM/50 ML(in water) 2 GM in Premix 1 BAG IVPB SCH (08:37)
[2023-07-24] MEDS: Potassium Chloride 20 MEQ in Premix 1 BAG IVPB SCH (08:38)
[2023-07-24] MEDS: Potassium Chloride 20 MEQ TAB PO SCH (08:39)
[2023-07-25] MEDS: Zolpidem Tartrate 5 MG TAB PO SCH (00:59)
[2023-07-25 07:52] LABS: Hematocrit 41.5 % (36.0-47.0); Hemoglobin 13.5 g/dL (12.0-16.0); Manual Diff?? YES; Mean Corpuscular HGB CONC 32.5 g/dL (32.0-36.0); Mean Corpuscular Volume 95.2 fl (78.0-98.0); Mean Platelet Volume 10.5 fL (7.4-10.4); Platelet Count 233 10x3/uL (130-400); RBC Distribution Width 13.3 % (11.5-14.5); Red Blood Cell (RBC) Count 4.36 mill/uL (4.20-5.40); White Blood Cell (WBC) Count 13.2 10x3/uL (4.8-10.8)
[2023-07-25 07:59] LABS: Delete Auto Diff?? YES
[2023-07-25 08:02] LABS: ALT (SGPT) 56 U/L (8-55); AST (SGOT) 36 U/L (5-34); Albumin 3.8 g/dL (3.5-5.0); Alkaline Phosphatase 119 U/L (40-110); Anion Gap 15 mmol/L (10-20); BUN (Urea Nitrogen) 9 mg/dL (7.0-18.7); Bilirubin, Direct 0.5 mg/dL (0.1-0.3); Calc. Creatinine Clearance 104 mL/min (70-130); Carbon Dioxide 23 mmol/L (22-29); Chloride 102 mmol/L (98-107); Estimated GFR 93; Glucose 111 mg/dL (70-105); Potassium 3.4 mmol/L (3.5-5.1); Protein, Total 7.1 g/dL (6.0-8.3); Sodium 137 mmol/L (136-145)
[2023-07-25] MEDS: Potassium Chloride 20 MEQ in Premix 1 BAG IVPB SCH (09:02)
[2023-07-25 09:26] LABS: Band 1 % (5-11); CellaVision Operator ID LAB.KW3; Lymphocytes 5 % (21-51); Monocytes 10 % (0-10); Neutrophil 84 % (42-75); Platelet Adequacy Comment Platelets Normal; RBC Morphology Within Normal Limits; Total Cell Count 99
[2023-07-25] MEDS: Potassium Chloride 10 MEQ in Premix 1 BAG IVPB SCH (13:50)
[2023-07-26 05:07] LABS: Hematocrit 36.8 % (36.0-47.0); Hemoglobin 12.4 g/dL (12.0-16.0); Manual Diff?? YES; Mean Corpuscular HGB CONC 33.7 g/dL (32.0-36.0); Mean Corpuscular Hemoglobin 30.8 pg (27.0-31.0); Mean Platelet Volume 9.4 fL (7.4-10.4); Platelet Count 244 10x3/uL (130-400); RBC Distribution Width 13.2 % (11.5-14.5); Red Blood Cell (RBC) Count 4.02 mill/uL (4.20-5.40); White Blood Cell (WBC) Count 15.5 10x3/uL (4.8-10.8)
[2023-07-26 05:17] LABS: Delete Auto Diff?? YES; Mean Corpuscular Volume 91.5 fl (78.0-98.0)
[2023-07-26 05:31] LABS: ALT (SGPT) 44 U/L (8-55); AST (SGOT) 27 U/L (5-34); Albumin 3.4 g/dL (3.5-5.0); Alkaline Phosphatase 93 U/L (40-110); Anion Gap 11 mmol/L (10-20); BUN (Urea Nitrogen) 9 mg/dL (7.0-18.7); Bilirubin, Direct 0.4 mg/dL (0.1-0.3); Bilirubin, Total 0.7 mg/dL (0.2-1.2); Calc. Creatinine Clearance 109 mL/min (70-130); Calcium 8.6 mg/dL (7.8-10.44); Carbon Dioxide 24 mmol/L (22-29); Chloride 105 mmol/L (98-107); Estimated GFR 98; Glucose 116 mg/dL (70-105); Potassium 3.7 mmol/L (3.5-5.1); Protein, Total 6.3 g/dL (6.0-8.3); Sodium 136 mmol/L (136-145)
[2023-07-26 05:49] LABS: Band 13 % (5-11); CellaVision Operator ID LAB.CLH1; Eosinophils 4 % (0-10); Lymphocytes 10 % (21-51); Monocytes 11 % (0-10); Neutrophil 62 % (42-75); Platelet Adequacy Comment Platelets Normal; Polychromasia SLIGHT = 2-3 cells HPF (0-2); Total Cell Count 101
[2023-07-26] MEDS: Ondansetron PF 4 MG/2 ML Vial IVP PRN (07:54)
[2023-07-26] MEDS ORDERED: Lidocaine 1% PF 5 ML VIAL ONE (09:30)
[2023-07-26] MEDS ORDERED: Sodium Bicarbonate 2.5 MEQ/5 ML SDV ONE (09:30)
[2023-07-26] MEDS: Scopolamine 1 mg/72 hour Patch TD SCH (12:00)
[2023-07-26] MEDS: Metoclopramide HCl 10 MG (2 mL) VIAL IVP PRN (12:19)
[2023-07-26] MEDS: Metoclopramide HCl 10 MG TAB PO SCH (12:50)
[2023-07-26 13:09] LABS: Amphetamine Not Detected (NotDetected); Barbiturates Screen Not Detected (NotDetected); Benzodiazepine Screen Not Detected (NotDetected); Cocaine Metabolite Screen Not Detected (NotDetected); Methadone Not Detected (NotDetected); Methamphetamine Not Detected (NotDetected); Opiate Screen Not Detected (NotDetected); Oxycodone Screen Not Detected (NotDetected); Phencyclidine (PCP) Not Detected (NotDetected); THC/Cannabinoid Screen Detected (NotDetected); Tricyclic Screen Not Detected (NotDetected)
[2023-07-26] MEDS: Carvedilol 6.25 MG TAB PO SCH (13:32)
[2023-07-26] MEDS: Ertapenem 1 GM in Sodium Chloride 0.9% 100 ML IVPB SCH (15:44)
[2023-07-27 04:34] LABS: #Basophils 0.1 thou/uL (0.0-0.2); #Eosinphils 0.2 thou/uL (0.0-0.7); #Monocytes 1.7 thou/uL (0.11-0.59); #Neutrophils 11.7 thou/uL (1.40-6.50); %Basophils 0.4 % (0.0-1.0); %Eosinophils 1.2 % (0.0-10.0); %Lymphocytes 15.9 % (21.0-51.0); %Monocytes 9.7 % (0.0-10.0); %Neutrophils 68.5 % (42.0-75.0); Hematocrit 39.1 % (36.0-47.0); Hemoglobin 13.3 g/dL (12.0-16.0); Mean Corpuscular Hemoglobin 31.1 pg (27.0-31.0); Mean Corpuscular Volume 91.6 fl (78.0-98.0); Mean Platelet Volume 9.4 fL (7.4-10.4); Platelet Count 316 10x3/uL (130-400); RBC Distribution Width 13.1 % (11.5-14.5); Red Blood Cell (RBC) Count 4.27 mill/uL (4.20-5.40); White Blood Cell (WBC) Count 17.1 10x3/uL (4.8-10.8)
[2023-07-27 04:56] LABS: ALT (SGPT) 42 U/L (8-55); AST (SGOT) 28 U/L (5-34); Albumin 3.8 g/dL (3.5-5.0); Alkaline Phosphatase 102 U/L (40-110); Anion Gap 11 mmol/L (10-20); BUN (Urea Nitrogen) 8 mg/dL (7.0-18.7); Bilirubin, Direct 0.4 mg/dL (0.1-0.3); Bilirubin, Total 0.8 mg/dL (0.2-1.2); Calc. Creatinine Clearance 100 mL/min (70-130); Calcium 8.7 mg/dL (7.8-10.44); Carbon Dioxide 26 mmol/L (22-29); Chloride 101 mmol/L (98-107); Estimated GFR 89; Glucose 165 mg/dL (70-105); Potassium 3.3 mmol/L (3.5-5.1); Sodium 135 mmol/L (136-145)
[2023-07-27] MEDS: Amlodipine 5 MG TAB PO SCH (09:34)
[2023-07-27] MEDS: Carvedilol 6.25 MG TAB PO SCH (09:35)
[2023-07-27] MEDS: Potassium Bicarbonate/Cit Ac 20 MEQ TAB PO SCH (09:36)
[2023-07-27] MEDS ORDERED: hydrALAZINE 20 MG/ML VIAL SLOW IVP PRN (10:04)
[2023-07-27] MEDS: Potassium Chloride 20 MEQ TAB PO SCH (12:14)
[2023-07-27] MEDS ORDERED: Iopamidol 370 76% 100 ML VIAL ONE (14:14)
[2023-07-27] MEDS: hydrALAZINE 25 MG TAB PO SCH (16:24)
[2023-07-27] MEDS: Meropenem 1 GM in Sodium Chloride 0.9% 100 ML IVPB SCH (17:53)
[2023-07-28] MEDS: Ibuprofen 800 MG TAB PO SCH (02:02)
[2023-07-28 03:42] LABS: #Basophils 0.1 thou/uL (0.0-0.2); #Eosinphils 0.4 thou/uL (0.0-0.7); #Monocytes 1.3 thou/uL (0.11-0.59); #Neutrophils 11.8 thou/uL (1.40-6.50); %Basophils 0.3 % (0.0-1.0); %Lymphocytes 18.9 % (21.0-51.0); %Monocytes 7.3 % (0.0-10.0); %Neutrophils 67.3 % (42.0-75.0); Hematocrit 38.3 % (36.0-47.0); Hemoglobin 12.9 g/dL (12.0-16.0); Mean Corpuscular HGB CONC 33.7 g/dL (32.0-36.0); Mean Corpuscular Hemoglobin 31.3 pg (27.0-31.0); Mean Platelet Volume 9.2 fL (7.4-10.4); Platelet Count 354 10x3/uL (130-400); RBC Distribution Width 12.9 % (11.5-14.5); Red Blood Cell (RBC) Count 4.12 mill/uL (4.20-5.40); White Blood Cell (WBC) Count 17.5 10x3/uL (4.8-10.8)
[2023-07-28 04:07] LABS: ALT (SGPT) 44 U/L (8-55); AST (SGOT) 27 U/L (5-34); Albumin 3.8 g/dL (3.5-5.0); Alkaline Phosphatase 93 U/L (40-110); Anion Gap 13 mmol/L (10-20); BUN (Urea Nitrogen) 10 mg/dL (7.0-18.7); Bilirubin, Direct 0.4 mg/dL (0.1-0.3); Bilirubin, Total 0.7 mg/dL (0.2-1.2); Calc. Creatinine Clearance 109 mL/min (70-130); Calcium 9.1 mg/dL (7.8-10.44); Carbon Dioxide 23 mmol/L (22-29); Chloride 105 mmol/L (98-107); Estimated GFR 98; Glucose 116 mg/dL (70-105); Potassium 4.4 mmol/L (3.5-5.1); Protein, Total 6.8 g/dL (6.0-8.3); Sodium 137 mmol/L (136-145)
[2023-07-28 17:27] LABS: Bacteria/HPF None Seen HPF (None Seen); Bilirubin Negative (Negative); Blood, Urine Negative (Negative); CAUTI Indications for Culture Dysuria,urgency,freq; Clarity Clear (Clear); Glucose, Urine (Dipstick) Normal (Negative); Ketone, Urine Negative (Negative); Leukocyte Negative Leu/uL (Negative); Nitrite Negative (Negative); Protein, Urine (Dipstick) Negative (Neg-Trace); RBC/HPF 0-3 HPF (0-3); Specific Gravity, Urine 1.007 (1.002-1.036); Squamous Epithelial 0-3 HPF (0-3); Urobilinogen Normal mg/dL (Less than 2); WBC/HPF 0-3 HPF (0-3)
[2023-07-28 17:30] LABS: Urine Culture Reflex No No
[2023-07-28] MEDS: Vancomycin HCl 125 MG Capsule PO SCH (21:07)
[2023-07-29 05:45] LABS: #Basophils 0.1 thou/uL (0.0-0.2); #Eosinphils 0.3 thou/uL (0.0-0.7); #Monocytes 1.2 thou/uL (0.11-0.59); #Neutrophils 9.9 thou/uL (1.40-6.50); %Basophils 0.4 % (0.0-1.0); %Eosinophils 2.3 % (0.0-10.0); %Lymphocytes 19.2 % (21.0-51.0); %Monocytes 7.9 % (0.0-10.0); %Neutrophils 68.1 % (42.0-75.0); Hematocrit 42.3 % (36.0-47.0); Hemoglobin 14.1 g/dL (12.0-16.0); Mean Corpuscular HGB CONC 33.3 g/dL (32.0-36.0); Mean Corpuscular Hemoglobin 30.7 pg (27.0-31.0); Mean Platelet Volume 9.2 fL (7.4-10.4); Platelet Count 407 10x3/uL (130-400); RBC Distribution Width 12.8 % (11.5-14.5); White Blood Cell (WBC) Count 14.6 10x3/uL (4.8-10.8)
[2023-07-29 06:11] LABS: Anion Gap 11 mmol/L (10-20); BUN (Urea Nitrogen) 10 mg/dL (7.0-18.7); Calc. Creatinine Clearance 99 mL/min (70-130); Calcium 9.3 mg/dL (7.8-10.44); Carbon Dioxide 28 mmol/L (22-29); Chloride 101 mmol/L (98-107); Estimated GFR 87; Glucose 110 mg/dL (70-105); Potassium 4.2 mmol/L (3.5-5.1); Sodium 136 mmol/L (136-145)
[2023-07-29] MEDS: Saccharomyces boulardii 250 MG CAP PO SCH (11:12)
[2023-07-29] MEDS: Meropenem 1 GM in Sodium Chloride 0.9% 100 ML IVPB SCH ×2 (13:29→21:06)
[2023-07-29] MEDS ORDERED: Meropenem 1 GM in Sodium Chloride 0.9% 100 ML IVPB SCH (14:00)
[2023-07-30] MEDS: tiZANidine HCl 4 MG TAB PO PRN (01:30)
[2023-07-30 06:11] LABS: #Eosinphils 0.3 thou/uL (0.0-0.7); #Neutrophils 8.4 thou/uL (1.40-6.50); %Basophils 0.3 % (0.0-1.0); %Eosinophils 2.1 % (0.0-10.0); %Lymphocytes 22.5 % (21.0-51.0); %Monocytes 7.7 % (0.0-10.0); %Neutrophils 65.8 % (42.0-75.0); Hematocrit 41.3 % (36.0-47.0); Hemoglobin 13.8 g/dL (12.0-16.0); Mean Corpuscular HGB CONC 33.4 g/dL (32.0-36.0); Mean Corpuscular Hemoglobin 30.8 pg (27.0-31.0); Mean Corpuscular Volume 92.2 fl (78.0-98.0); Mean Platelet Volume 9.2 fL (7.4-10.4); Platelet Count 436 10x3/uL (130-400); RBC Distribution Width 12.6 % (11.5-14.5); Red Blood Cell (RBC) Count 4.48 mill/uL (4.20-5.40); White Blood Cell (WBC) Count 12.8 10x3/uL (4.8-10.8)
[2023-07-30 06:34] LABS: Anion Gap 12 mmol/L (10-20); BUN (Urea Nitrogen) 12 mg/dL (7.0-18.7); Calc. Creatinine Clearance 106 mL/min (70-130); Calcium 9.6 mg/dL (7.8-10.44); Carbon Dioxide 25 mmol/L (22-29); Chloride 102 mmol/L (98-107); Estimated GFR 95; Glucose 111 mg/dL (70-105); Potassium 4.3 mmol/L (3.5-5.1); Sodium 135 mmol/L (136-145)
[2023-07-30 08:22] VITALS: BP 128/82; TEMP 98.9
[2023-07-30] MEDS: hydrALAZINE 25 MG TAB PO SCH (08:23)
[2023-07-30] MEDS: Sodium Chloride 0.9% 1,000 ML IV SCH (08:25)
== END 2023-07-30 14:47 | disposition home or self-care (01) | DRG 871 ==
LOC: ERS 10:35 → MSONC 15:12 → OBSVTOIN 07-22 08:35
PROVIDERS: ADMIT Internal Medicine; ATTEND Family Medicine
PROC: 3E03329 Introduction of Other Anti-infective into Peripheral Vein, Percutaneous Approach (ICD-10-PCS; 2023-07-21)
PROC: 3E033XZ Introduction of Vasopressor into Peripheral Vein, Percutaneous Approach (ICD-10-PCS; 2023-07-22)
PROC: 30233J1 Transfusion of Nonautologous Serum Albumin into Peripheral Vein, Percutaneous Approach (ICD-10-PCS; 2023-07-22)
PROC: 02HV33Z Insertion of Infusion Device into Superior Vena Cava, Percutaneous Approach (ICD-10-PCS; principal; 2023-07-26)
PROC: B548ZZA Ultrasonography of Superior Vena Cava, Guidance (ICD-10-PCS; 2023-07-26)
PROC: B5181ZA Fluoroscopy of Superior Vena Cava using Low Osmolar Contrast, Guidance (ICD-10-PCS; 2023-07-26)
DX: A41.51 Sepsis due to Escherichia coli [E. coli] (principal); J96.01 Acute respiratory failure with hypoxia; K72.00 Acute and subacute hepatic failure without coma; N12 Tubulo-interstitial nephritis, not specified as acute or chronic; N10 Acute pyelonephritis; Z16.24 Resistance to multiple antibiotics; A04.72 Enterocolitis due to Clostridium difficile, not specified as recurrent; I10 Essential (primary) hypertension; R65.20 Severe sepsis without septic shock; M54.9 Dorsalgia, unspecified; R11.2 Nausea with vomiting, unspecified; G89.29 Other chronic pain; Z98.890 Other specified postprocedural states; Z90.49 Acquired absence of other specified parts of digestive tract; Z79.51 Long term (current) use of inhaled steroids; Z79.899 Other long term (current) drug therapy; Z90.89 Acquired absence of other organs; Z98.51 Tubal ligation status; I34.0 Nonrheumatic mitral (valve) insufficiency; Z11.52 Encounter for screening for COVID-19
CPT/HCPCS: 36415; 36416; 36569; 71045; 74177; 80048; 80053; 80074; 80076; 80306; 81001; 82805; 83605; 83690; 83735; 83880; 85025; 87040; 87077; 87086; 87149; 87186; 87324; 87449; 87493; 93005; 93010; 93306; 94640; 96361; 96365; 96372; 96375; 96376; C1751; G0378; J0360; J0692; J1335; J1650; J1885; J1940; J2185; J2270; J2272; J2310; J2405; J2765; J3475; J3480; J3490; J7030; J7050; J7620; P9047; Q0162; Q9967